=== PATIENT | male | born 1965 | race Caucasian/White ===

== ENCOUNTER 2016-05-30 23:25 | Emergency (ER) | payer OTHER | END 2016-05-30 23:50 | disposition left against medical advice (07) | LOC: ER 23:29 | DX: Z53.21 Procedure and treatment not carried out due to patient leaving prior to being seen by health care provider (principal) ==

== ENCOUNTER 2019-05-24 11:42 | Emergency (ER) | payer OTHER ==
[~2019-05-24] VITALS: Ht 170.2 cm; Wt 72.6 kg
--- NOTE | 2019-05-24 12:08 | NUR ---
"Headache on/off xmonths but yesterday more constant. Feel cold" pt awake, alert, -sob, nad noted, vss, pending md granado
[2019-05-24] MEDS ORDERED: METOCLOPRAMIDE HCL 10 MG/2 ML VIAL IV ONE (12:30)
[2019-05-24] MEDS ORDERED: diphenhydrAMINE HCL 50 MG/ML VIAL IV ONE (12:30)
[2019-05-24] MEDS ORDERED: KETOROLAC TROMETHAMINE INJ 30 MG/ML VIAL IV ONE (12:30)
[2019-05-24 12:51] LABS: BASOPHILS % (AUTO) 0.1 % (0.0-2.0); EOSINOPHILS % (AUTO) 0.2 % (0.0-6.0); HEMATOCRIT 37 % (39-51); HEMOGLOBIN 12.6 g/dL (13.5-17.5); LYMPHOCYTES # (AUTO) 1.7 /CMM (0.8-4.8); LYMPHOCYTES % (AUTO) 16.4 % (20.0-44.0); MEAN CORPUSCULAR HGB CONC 34 g/dl (31.0-36.0); MEAN CORPUSCULAR VOLUME 85 fL (80-96); MONOCYTES # (AUTO) 0.8 /CMM (0.1-1.30); MONOCYTES % (AUTO) 8.3 % (2.0-12.0); NEUTROPHILS # (AUTO) 7.6 /CMM (1.8-8.9); PLATELET COUNT (AUTO) 333 /CMM (150-450); RED BLOOD CELL COUNT(AUTO) 4.39 MIL/uL (4.5-6.0); WHITE BLOOD COUNT (AUTO) 10.2 K/uL (4.3-11.0)
[2019-05-24 12:56] LABS: CALCIUM, SERUM 8.9 mg/dL (8.5-10.1); CREATININE 0.7 mg/dL (0.6-1.3); POTASSIUM 4.4 mmol/L (3.5-5.1)
[2019-05-24] MEDS ORDERED: METOCLOPRAMIDE HCL 10 MG/2 ML VIAL ONE (13:04)
[2019-05-24] MEDS ORDERED: diphenhydrAMINE HCL 50 MG/ML VIAL ONE (13:04)
[2019-05-24] MEDS ORDERED: KETOROLAC TROMETHAMINE INJ 30 MG/ML VIAL ONE (13:04)
[2019-05-24] MEDS ORDERED: IV NS 0.9% 250 ML IV ONE (13:48)
[2019-05-24] MEDS ORDERED: IOHEXOL-300 100 ML VIAL IV ONE (13:48)
[2019-05-24] MEDS ORDERED: CT SWABBABLE VALVE TRANS SET 1 EA INFUS.SET MC ONE (13:48)
[2019-05-24 14:00] VITALS: BP 110/68
--- NOTE | 2019-05-24 15:03 | NUR ---
Patient discharged to home in stable condition. Written and verbal after care instructions given. Patient verbalizes understanding of instruction. IV removed. Catheter intact and site benign. Pressure and 4x4 applied to site. No bleeding noted.
== END 2019-05-24 15:03 | disposition home or self-care (01) ==
LOC: ER 11:45
DX: R51 Headache (principal); Z90.49 Acquired absence of other specified parts of digestive tract
CPT/HCPCS: 36415; 70460; 80048; 85025; 96374; 96375; 99284; J1200; J1885; J2765; J7030; J7050; Q9967